=== PATIENT | male | born 1965 | race Caucasian/White ===

== ENCOUNTER → 2016-04-17 | Outpatient (CLI) | payer BC ==
--- NOTE | 2016-04-17 11:06 | DIAGNOSTIC IMAGING REPORT ---
GI SERIES W/AIR ROUTINE CLINICAL HISTORY: R13.12 Dysphagia, oropharyngeal [id number] pain. COMPARISON STUDY: 04/17/2016 FLUOROSCOPY TIME: 2.6 minutes 20 fluoroscopic spot images were acquired. FINDINGS: The patient swallowed effervescent granules and barium without difficulty. There is subtle granularity esophageal mucosa. A minimal esophagitis cannot be excluded. No reflux was demonstrated. The stomach appeared normal. There is no gastric outlet obstruction. The duodenal bulb appeared normal. The ligament Treitz is located in the normal anatomical position. The patient swallowed one half inch barium pill. This freely passed into the stomach. IMPRESSION: Equivocal slight granularity of the esophageal mucosa. A minimal esophagitis cannot be excluded. The study is otherwise within normal limits. Electronically signed by: Fred Townsend M.D. 04/17/2016 11:05 AM Dictated Date/Time: 04/17/2016 11:00 AM
--- NOTE | 2016-04-17 11:30 | SWALLOWING EVALUATION ---
REFERRING SPEECH PATHOLOGIST: n/a HISTORY: This 50 year-old man was referred for a VFSS at [facility] in order to address c/o new heartburn and indigestion, globus sensation and increased pill dysphagia x 1 month. The patient has a PMH significant for asthma, cholecystectomy and lower extremity vascular surgery. Currently the patient's diet level is regular. He completed an UGI Series and I was present in its entirety. The patient swallowed barium in single and sequential swallows from a cup and a straw while standing and while lying down. The patient also swallowed a 1/2" barium tablet with water as a wash. RESULTS: Oral Stage: Not assessed. Pt has no complaints re: mastication, bolus formation and bolus transfer. Pharyngeal Stage: No penetration or aspiration seen during study. There was some mild vallecular retention of liquid, but it cleared as the study progressed. Esophageal Stage: Evidence of dysmotility and possible esophagitis. SUMMARY/RECOMMENDATIONS: This patient presents with normal pharyngeal swallowing mechanics, but does have s/s esophageal dysfunction. His presenting complaints and study findings are indicative of possible GERD. The following is recommended: 1. Regular diet as tolerated. Pt was counseled re: choosing more slippery, loose foods and was given written information about it. 2. Compensatory Strategies: take medications with fluids or in a carrier, remain upright 20-30 minutes after a meal, keep head of bed elevated at least 30-degrees at all times, eat small meals more frequently 3. Consideration of f/u with gastroenterology re: possible GERD and/or LPR. A summary of the results and recommendations was discussed with the patient immediately following the study. He received education re: esophageal function, globus sensation, and the swallowing mechanism. He opted not to complete the Video Swallow Study portion of the assessment at this time. If there are dysphagia complaints once the GI symptoms are controlled then please consider completing a Video Swallow Study at that time. Thank you for referral of this patient. Please contact me at if any additional information is needed.
== END | disposition home or self-care (01) ==
LOC: C.RAD 10:27
PROVIDERS: ATTEND Internal Medicine
DX: R13.12 Dysphagia, oropharyngeal phase (principal)

== ENCOUNTER → 2016-05-23 | Outpatient (CLI) | payer BC ==
[~2016-05-23] MED LIST: OPTIRAY 320 IV PRN
--- NOTE | 2016-05-23 08:26 | DIAGNOSTIC IMAGING REPORT ---
CT NECK WITH AND WITHOUT INTRAVENOUS CONTRAST CLINICAL HISTORY: R13.12 Dysphagia, oropharyngeal [id number] TECHNIQUE: Multiaxial CT images of the neck were performed both before and after the intravenous administration of contrast. COMPARISON STUDY: None. FINDINGS: There are no parotid or submandibular stones identified. The visualized brain parenchyma and orbits are unremarkable. The pterygopalatine fossa are well-maintained. Prevertebral soft tissues and the epiglottis are normal in thickness. The thyroid gland enhances normally. The lung apices are clear. No fractures within the visualized osseous structures. The paranasal sinuses and mastoid air cells are clear. Mild degenerative disc disease within the mid to lower cervical spine. The carotid and vertebral arteries are patent. The major salivary glands enhance symmetrically. No cervical lymphadenopathy. The major mucosal airway surfaces are intact. IMPRESSION: No significant abnormality within the neck. Electronically signed by: Albert Patel M.D. 05/23/2016 8:24 AM Dictated Date/Time: 05/23/2016 8:18 AM
== END | disposition home or self-care (01) ==
LOC: C.CTS 07:57
PROVIDERS: ATTEND Internal Medicine
DX: R13.12 Dysphagia, oropharyngeal phase (principal)

== ENCOUNTER → 2017-04-17 | Outpatient (CLI) | payer OTHER ==
[2017-04-17 09:26] LABS: BASO % 0.5 %; BASO ABS # 0.02 K/uL (0-0.2); EOS % 2.1 %; EOS ABS # 0.08 K/uL (0-0.5); HEMOGLOBIN 16.4 g/dL (14.0-18.0); IG# 0.02 K/uL (0.00-0.02); LYMPH ABS # 1.28 K/uL (1.2-3.4); MEAN CELL VOLUME 82.6 fL (80-100); MEAN CORPUSCULAR HEMOGLOBIN 29.4 pg (25-34); MEAN CORPUSCULAR HGB CONC 35.7 g/dl (32-36); MEAN PLATELET VOLUME 9.8 fL (7.4-10.4); MONO % 7.5 %; MONO ABS # 0.29 K/uL (0.11-0.59); NEUT % 56.4 %; NEUT ABS # 2.19 K/uL (1.4-6.5); PLATELET COUNT 173 K/uL (130-400); RED CELL DISTRIBUTION WIDTH CV 12.8 % (11.5-14.5); RED CELL DISTRIBUTION WIDTH SD 38.5 fL (36.4-46.3); WHITE BLOOD COUNT 3.88 K/uL (4.8-10.8)
[2017-04-17 09:44] LABS: ALBUMIN 4.2 gm/dl (3.4-5.0); ALT/SGPT 41 U/L (12-78); BLOOD UREA NITROGEN 16 mg/dl (7-18); CALCIUM 8.9 mg/dl (8.5-10.1); CARBON DIOXIDE 29 mmol/L (21-32); CHOLESTEROL 164 mg/dl (0-200); CREATININE 0.99 mg/dl (0.60-1.40); GLUCOSE 87 mg/dl (70-99); POTASSIUM 4.1 mmol/L (3.5-5.1); SODIUM 137 mmol/L (136-145)
[2017-04-17 09:49] LABS: ALKALINE PHOSPHATASE 65 U/L (45-117); AST/SGOT 19 U/L (15-37); LDL CHOLESTEROL CALCULATED 87 mg/dl; TOTAL PROTEIN 7.5 gm/dl (6.4-8.2)
== END | disposition home or self-care (01) ==
LOC: C.LAB 07:48
PROVIDERS: ATTEND Internal Medicine
DX: I10 Essential (primary) hypertension (principal); K76.0 Fatty (change of) liver, not elsewhere classified; D23.9 Other benign neoplasm of skin, unspecified; E78.1 Pure hyperglyceridemia; Z11.59 Encounter for screening for other viral diseases; E78.6 Lipoprotein deficiency